=== PATIENT | female | born 1945 | race Two or more races ===

== ENCOUNTER 2016-07-27 15:37 | Emergency (ER) | payer MEDICARE, BC ==
[~2016-07-27] VITALS: Ht 160 cm; Wt 72.6 kg
[2016-07-27 15:46] VITALS: BP 131/69
[2016-07-27 16:21] LABS: KETONES,URINE Negative (NEGATIVE); LEUKOCYTE ESTERASE ,URINE Trace (NEGATIVE); PH,URINE 5.5 (5.0-8.0)
[2016-07-27 16:23] LABS: ADD UA MICROSCOPIC YES
[2016-07-27 16:26] LABS: BASOPHILS # (AUTO) 0.1 /CMM (0.0-0.2); BASOPHILS % (AUTO) 0.7 % (0.0-2.0); DIFF TOTAL % 100 %; EOSINOPHILS # (AUTO) 0.2 /CMM (0.0-0.7); EOSINOPHILS % (AUTO) 1.2 % (0.0-6.0); HEMATOCRIT 43 % (33-45); HEMOGLOBIN 14.1 g/dL (11.5-14.8); LYMPHOCYTES # (AUTO) 2.9 /CMM (0.8-4.8); LYMPHOCYTES % (AUTO) 21.2 % (20.0-44.0); MEAN CORPUSCULAR HEMOGLOBIN 30 PG (26.0-33.0); MEAN CORPUSCULAR HGB CONC 33 g/dl (31.0-36.0); MEAN CORPUSCULAR VOLUME 90 fL (82-100); MONOCYTES # (AUTO) 1.1 /CMM (0.1-1.30); MONOCYTES % (AUTO) 7.6 % (2.0-12.0); NEUTROPHILS # (AUTO) 9.6 /CMM (1.8-8.9); NEUTROPHILS % (AUTO) 69.3 % (43.0-81.0); PLATELET COUNT (AUTO) 276 /CMM (150-450); RED BLOOD CELL COUNT(AUTO) 4.79 MIL/uL (4.0-5.2); WHITE BLOOD COUNT (AUTO) 13.9 K/uL (4.3-11.0)
[2016-07-27 16:30] LABS: ADD URINE CULTURE NO; RBC,URINE 0-2 /HPF (0-2)
[2016-07-27 16:34] LABS: CALCIUM, SERUM 8.8 mg/dL (8.5-10.1); CREATININE 1.2 mg/dL (0.6-1.3); POTASSIUM 4.2 mmol/L (3.5-5.1)
[2016-07-27 16:40] LABS: ALBUMIN 3.4 g/dL (3.4-5.0); BILIRUBIN,DIRECT 0.1 mg/dL (0.0-0.2); BILIRUBIN,TOTAL 0.4 mg/dL (0.2-1.0); INDIRECT BILIRUBIN 0.3 mg/dL (0.0-1.1); TOTAL PROTEIN, SERUM 7.1 g/dL (6.4-8.2)
== END 2016-07-27 17:30 | disposition home or self-care (01) ==
LOC: ER 16:32
DX: R19.7 Diarrhea, unspecified (principal); E78.00 Pure hypercholesterolemia, unspecified; F32.9 Major depressive disorder, single episode, unspecified; M81.0 Age-related osteoporosis without current pathological fracture; R11.2 Nausea with vomiting, unspecified; R50.9 Fever, unspecified; Z13.820 Encounter for screening for osteoporosis; Z88.5 Allergy status to narcotic agent
CPT/HCPCS: 36415; 80048; 80076; 81001; 83690; 85025; 99284; A4606; 81000-TC; Z7610

== ENCOUNTER 2019-04-14 16:53 | Emergency (ER) | payer MEDICARE, BC ==
[~2019-04-14] VITALS: Ht 160 cm; Wt 72.6 kg
--- NOTE | 2019-04-14 16:58 | NUR ---
PT CAME INTO THE ED C/O COUGH W/ CONGESTION X 2 WEEKS. +NAUSEA, +VOMITING, DIARRHEA. PT AAOX4, VSS, BREATHING EVEN AND UNALBORED ON ROOM AIR W/ NAD. PT CONNECTED TO THE MONITOR AND POX.
--- NOTE | 2019-04-14 17:00 | NUR ---
DR SINGH AT BEDSIDE FOR EVAL
--- NOTE | 2019-04-14 17:07 | NUR ---
SAMPLE SENT TO LAB FOR INFLUENZA
--- NOTE | 2019-04-14 17:10 | NUR ---
XRAY AT BEDSIDE
--- NOTE | 2019-04-14 17:14 | NUR ---
PROCESS INSPECTOR AT BEDSIDE FOR BLOOD DRAW
[2019-04-14 17:25] LABS: BASOPHILS # (AUTO) 0.1 /CMM (0.0-0.2); BASOPHILS % (AUTO) 0.6 % (0.0-2.0); EOSINOPHILS % (AUTO) 2.2 % (0.0-6.0); HEMATOCRIT 47 % (33-45); HEMOGLOBIN 15.4 g/dL (11.5-14.8); LYMPHOCYTES # (AUTO) 1.9 /CMM (0.8-4.8); LYMPHOCYTES % (AUTO) 9.7 % (20.0-44.0); MEAN CORPUSCULAR HGB CONC 33 g/dl (31.0-36.0); MEAN CORPUSCULAR VOLUME 90 fL (82-100); MONOCYTES # (AUTO) 0.9 /CMM (0.1-1.30); MONOCYTES % (AUTO) 4.4 % (2.0-12.0); NEUTROPHILS # (AUTO) 16.5 /CMM (1.8-8.9); NEUTROPHILS % (AUTO) 83.1 % (43.0-81.0); PLATELET COUNT (AUTO) 372 /CMM (150-450); WHITE BLOOD COUNT (AUTO) 19.9 K/uL (4.3-11.0)
[2019-04-14 17:31] LABS: CALCIUM, SERUM 9.2 mg/dL (8.5-10.1); CARBON DIOXIDE 26 mmol/L (21-32); CHLORIDE 105 mmol/L (98-107); CREATININE 1.4 mg/dL (0.6-1.3); GLUCOSE 117 mg/dL (74-106); SODIUM SERUM 143 mmol/L (136-145); UREA NITROGEN, BLOOD 36 mg/dL (7-18)
[2019-04-14 17:38] LABS: ALANINE AMINOTRANSFERASE 30 U/L (12-78); ALBUMIN 3.9 g/dL (3.4-5.0); ALKALINE PHOSPHATASE 32 U/L (46-116); ASPARTATE AMINOTRANSFERASE 23 U/L (15-37); BILIRUBIN,DIRECT 0.1 mg/dL (0.0-0.2); BILIRUBIN,TOTAL 0.5 mg/dL (0.2-1.0); TOTAL PROTEIN, SERUM 7.4 g/dL (6.4-8.2)
[2019-04-14] MEDS ORDERED: ONDANSETRON HCL/PF 4 MG/2 ML VIAL ONE (17:50)
[2019-04-14] MEDS ORDERED: LEVOFLOXACIN 750 MG /D5W 150ML 150 ML IV ONE ×2 (17:50→18:00)
[2019-04-14] MEDS ORDERED: IV NS 0.9% 1,000 ML BAG IV ONE (18:00)
[2019-04-14] MEDS ORDERED: ONDANSETRON HCL/PF 4 MG/2 ML VIAL IVP ONE (18:00)
[2019-04-14] MEDS ORDERED: DEXL60CA3 PO (18:13)
[2019-04-14] MEDS ORDERED: FENO145T21 PO (18:13)
[2019-04-14] MEDS ORDERED: PROP10TA68 PO (18:13)
[2019-04-14] MEDS ORDERED: LORA-258 PO (18:13)
[2019-04-14] MEDS ORDERED: LORA10TA7 PO (18:13)
[2019-04-14] MEDS ORDERED: ESCI10TA PO (18:13)
[2019-04-14] MEDS ORDERED: PITA4TAB PO (18:13)
[2019-04-14] MEDS ORDERED: RALO60TA PO (18:13)
--- NOTE | 2019-04-14 19:00 | NUR ---
REPORT GIVEN TO NICOLÁS HOLM FOR JULIEN
--- NOTE | 2019-04-14 19:15 | NUR ---
PT IN BED 9, AAOX4. NO SOB. BREATHING EVENLY AND UNLABORED. CONNECTED TO MONITOR. FAMILY MEMBER AT BEDSIDE.
--- NOTE | 2019-04-14 19:44 | NUR ---
IV removed. Catheter intact and site benign. Pressure and 4x4 applied to site. No bleeding noted. Patient discharged to home in stable condition. Written and verbal after care instructions given. Patient verbalizes understanding of instruction.
[2019-04-14 19:45] VITALS: BP 126/70
== END 2019-04-14 19:46 | disposition home or self-care (01) ==
LOC: ER 16:54
DX: J40 Bronchitis, not specified as acute or chronic (principal); R11.2 Nausea with vomiting, unspecified; E78.00 Pure hypercholesterolemia, unspecified; F32.9 Major depressive disorder, single episode, unspecified; M81.0 Age-related osteoporosis without current pathological fracture; Z88.5 Allergy status to narcotic agent; Z79.899 Other long term (current) drug therapy
CPT/HCPCS: 36415; 71045; 80048; 80076; 85025; 87804 ×2; 96365; 96375; 99284; J1956; J2405; J7030

== ENCOUNTER 2020-10-23 20:53 | Emergency (ER) | payer MEDICARE, BC ==
[~2020-10-23] VITALS: Ht 160 cm; Wt 74.4 kg
[~2020-10-23 20:53] MED LIST: DEXL60CA3 PO; ESCI10TA PO; FENO145T21 PO; LORA-258 PO; LORA10TA7 PO; PITA4TAB PO; PROP10TA68 PO; RALO60TA PO
--- NOTE | 2020-10-23 20:53 | NUR ---
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 NITRO SL X2 & XANAX WITHOUT ANY RELIEF., PT AAOX4, DENIES ANY SOB, VSS ,NOT IN ACUTE DSITRESS. PENDING ER PROVIDER ELVA
[2020-10-23] MEDS ORDERED: ASPIRIN 325 MG TABLET ONE (21:06)
[2020-10-23] MEDS: ASPIRIN 325 MG TABLET PO ONE (21:07)
[2020-10-23 21:09] LABS: BASOPHILS % (AUTO) 0.3 % (0.0-2.0); EOSINOPHILS % (AUTO) 2.6 % (0.0-6.0); HEMATOCRIT 41 % (33-45); HEMOGLOBIN 13.7 g/dL (11.5-14.8); LYMPHOCYTES # (AUTO) 4.5 /CMM (0.8-4.8); LYMPHOCYTES % (AUTO) 38.5 % (20.0-44.0); MEAN CORPUSCULAR HGB CONC 34 g/dl (31.0-36.0); MEAN CORPUSCULAR VOLUME 90 fL (82-100); MONOCYTES # (AUTO) 1.2 /CMM (0.1-1.30); MONOCYTES % (AUTO) 10.1 % (2.0-12.0); NEUTROPHILS # (AUTO) 5.7 /CMM (1.8-8.9); NEUTROPHILS % (AUTO) 48.5 % (43.0-81.0); PLATELET COUNT (AUTO) 301 /CMM (150-450); RED BLOOD CELL COUNT(AUTO) 4.56 MIL/uL (4.0-5.2); WHITE BLOOD COUNT (AUTO) 11.7 K/uL (4.3-11.0)
[2020-10-23 21:16] LABS: CALCIUM, SERUM 8.9 mg/dL (8.5-10.1); CARBON DIOXIDE 28 mmol/L (21-32); CHLORIDE 108 mmol/L (98-107); CREATININE 1.5 mg/dL (0.6-1.3); GLUCOSE 105 mg/dL (74-106); POTASSIUM 3.8 mmol/L (3.5-5.1); SODIUM SERUM 144 mmol/L (136-145); UREA NITROGEN, BLOOD 27 mg/dL (7-18)
[2020-10-23] MEDS: IV NS 0.9% 1,000 ML IV ONE (21:51)
--- NOTE | 2020-10-23 22:24 | NUR ---
SECOND TROPININ DUE MIDNIGHT PER DR WREN
--- NOTE | 2020-10-24 00:49 | NUR ---
Patient discharged to home in stable condition. Written and verbal after care instructions given. Patient verbalizes understanding of instruction.IV removed. Catheter intact and site benign. Pressure and 4x4 applied to site. No bleeding noted.
[2020-10-24 00:51] VITALS: BP 139/82
== END 2020-10-24 00:52 | disposition home or self-care (01) ==
LOC: ER 20:57
DX: R07.89 Other chest pain (principal); E78.00 Pure hypercholesterolemia, unspecified; M81.0 Age-related osteoporosis without current pathological fracture; F32.9 Major depressive disorder, single episode, unspecified; Z88.5 Allergy status to narcotic agent; Z91.013 Allergy to seafood; Z79.899 Other long term (current) drug therapy
CPT/HCPCS: 36415; 71045; 80048; 84484 ×2; 85025; 93005; 96360; 99285; J7040